=== PATIENT | female | born 2000 | race Caucasian/White ===

== ENCOUNTER 2019-05-07 21:48 | Emergency (ER) | payer BC ==
--- NOTE | 2019-05-07 22:06 | ERPHSYRPT ---
- History of Present Illness Time Seen by Provider: 05/07/19 22:06 Source: patient, family Exam Limitations: no limitations Patient Subjective Stated Complaint: pt states she has a tonsil stone and feels like its stuck in the back of her throat. states she feels like it has moved farther down today and is gagging her Triage Nursing Assessment: pt alert and oriented, answers questions approp. pt ambulatory iwht steady gait noted. respiraitons nonlabored with lungs cta. pt tearful at times. skin pink warm and dry. Physician History: 19 y/o white female with known h/o tonsil stones. 3 days ago pt noticed a fb sensation lower in her throat. pt has tried making herself vomit with her fingers, gargling with mouthwash and drinking fluids. pt is breathing normally, eating normally, drinking normally. pt states "i'm freaking out" "it gags me". no sig pain. pt has an appt with ENT next week. Timing/Duration: gradual onset (over 3 days), intermittent Severity: mild ENT Location: throat Prearrival Treatment: over the counter meds (see hx) Associated Symptoms: No sore throat, No difficulty swallowing, No voice change Allergies/Adverse Reactions: No Known Drug Allergies Allergy (Verified 05/07/19 22:02) Home Medications: Famotidine 20 mg [Pepcid 20 MG] 20 mg PO BID 05/07/19 [History] Hx Tetanus, Diphtheria Vaccination/Date Given: Yes Hx Influenza Vaccination/Date Given: No Hx Pneumococcal Vaccination/Date Given: No Immunizations Up to Date: Yes - Review of Systems Constitutional: No Symptoms Eyes: No Symptoms Ears, Nose, & Throat: No Symptoms, Other (fb sensation when she swallows), No Painful Swallowing Respiratory: No Symptoms Cardiac: No Symptoms Abdominal/Gastrointestinal: No Symptoms Genitourinary Symptoms: No Symptoms Musculoskeletal: No Symptoms Skin: No Symptoms Neurological: No Symptoms Psychological: Anxiety Endocrine: No Symptoms Hematologic/Lymphatic: No Symptoms Immunological/Allergic: No Symptoms All Other Systems: Reviewed and Negative - Past Medical History Pertinent Past Medical History: Yes History: No Pertinent History Psycho-Social History: No Pertinent History Female Reproductive Disorders: No Pertinent History Other Medical History: tonsil stones, pt states she has been having liver priblems the last few motnhs - Past Surgical History Past Surgical History: Yes Neuro Surgical History: No Pertinent History Cardiac: No Pertinent History Respiratory: No Pertinent History Gastrointestinal: No Pertinent History Genitourinary: No Pertinent History Musculoskeletal: No Pertinent History Female Surgical History: No Pertinent History Other Surgical History: ganglion cyst removed rt wrist - Social History Smoking Status: Never smoker Exposure to second hand smoke: No Drug Use: marijuana Patient Lives Alone: No - Female History Hx Last Menstrual Period: last week Hx Now: No - Nursing Vital Signs Nursing Vital Signs: Initial Vital Signs Temperature 98.8 F 05/07/19 21:55 Pulse Rate 93 H 05/07/19 21:55 Respiratory Rate 18 05/07/19 21:55 Blood Pressure 132/98 05/07/19 21:55 O2 Sat by Pulse Oximetry 99 05/07/19 21:55 Pain Scale Pain Intensity 0 - Physical Exam General Appearance: no apparent distress, alert, anxiety Eye Exam: bilateral eye: normal inspection, PERRL, EOMI Nasal Exam: normal inspection Throat Exam: normal, pharynx normal, moist mucus membranes, No dental tenderness , No excessive drooling, No pharynx swelling, No pharynx tenderness, No tongue swollen, No tonsillar exudate, No tonsillar swelling, No uvula swelling, No voice changes Neck Exam: normal inspection (no stridor), non-tender, supple, full range of motion, trachea midline Cardiovascular/Respiratory Exam: chest non-tender, normal breath sounds, regular rate/rhythm, heart sounds normal, no respiratory distress, No wheezing Abdominal Exam: non-tender Neurologic Exam: alert, oriented x 3, cooperative, 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 may add chloraseptic solution gargle. follow up with ENT for further management. return to ED if pain or unable to breathe, or unable to swallow your secretions.
[2019-05-07 23:17] VITALS: BP 112/72; PULSE 95; O2SAT 100
== END 2019-05-07 23:16 | disposition home or self-care (01) ==
LOC: ED 21:48
DX: F41.9 Anxiety disorder, unspecified (principal); R09.89 Other specified symptoms and signs involving the circulatory and respiratory systems
CPT/HCPCS: 99283

== ENCOUNTER 2021-06-22 03:35 | Observation (INO) | payer OTHER ==
[2021-06-22 04:06] VITALS: O2SAT 97
[2021-06-22 04:10] LABS: Amourphous Crystal FEW /HPF (NEGATIVE); Appearance SLIGHTLY CLOUDY (CLEAR); Bacteria RARE /HPF (NEGATIVE); Bilirubin NEGATIVE (NEGATIVE); Blood MODERATE Ery/ul (0-5); Epithelial Cells RARE /HPF (FEW); Glucose NEGATIVE (NEGATIVE); Ketones NEGATIVE (NEGATIVE); Leukocyte Esterase TRACE (NEGATIVE); Mucus SLIGHT /HPF (NEGATIVE); Nitrite NEGATIVE (NEGATIVE); Protein,Urine Dip 30 (Negative); Specific Gravity 1.013 (1.005-1.025); Urobilinogen NEGATIVE mg/dL (0-1)
[2021-06-22 04:12] LABS: RBC >101 /HPF (0-2)
[2021-06-22 04:13] LABS: Amphetamine,Urine NEGATIVE (NEGATIVE); Barbiturate,Urine POSITIVE (NEGATIVE); Benzodiazepine,Urine NEGATIVE (NEGATIVE); Cocaine,Urine NEGATIVE (NEGATIVE); Methadone,Urine NEGATIVE (NEGATIVE); Opiate,Urine NEGATIVE (NEGATIVE); PCP,Urine NEGATIVE (NEGATIVE); THC,Urine NEGATIVE (NEGATIVE)
[2021-06-22] MEDS ORDERED: MORPHINE SULFATE 4 MG INJ IV PRN (04:39)
[2021-06-22] MEDS ORDERED: Zofran 4 MG/2 ML VIAL IV PRN (04:40)
[2021-06-22] MEDS ORDERED: Lactated Ringers 1,000 ML IV SCH (05:00)
[2021-06-22 05:48] LABS: Absolute Neutrophil Ct (ANC) 4.38 (1.4-6.9); BASOPHIL % 0.4 % (0.0-0.4); Basophil (Absolute #) 0.03 (0-0.4); Eosinophil % 0.6 % (0.00-5.0); Eosinophil (Absolute #) 0.05 (0-0.5); Hematocrit 34.5 % (35-47); Hemoglobin 11.5 gm/dl (12.0-16.0); Lymphocyte (Absolute #) 3.32 (1.0-4.6); Lymphocytes % 40.2 % (24.0-44.0); Mean Cell Volume 89.1 fl (78-100); Mean Corpuscular Hemoglobin 29.7 pg (26-32); Mean Corpuscular Hgb Concent. 33.3 g/dl (32-36); Mean Platelet Volume 10.3 fl (7.5-11.0); Monocyte (Absolute #) 0.47 (0.0-1.3); Monocytes % 5.7 % (0.0-12.0); Neutrophil % 53.1 % (36.0-66.0); Platelet Count 228 K/mm3 (150-450); Red Blood Count 3.87 M/mm3 (4.1-5.4); Red Cell Distribution Width 12.6 % (11.5-14.0); White Blood Count 8.3 K/mm3 (4.0-10.5)
[2021-06-22 05:53] LABS: ALBUMIN 3.9 g/dL (3.5-5.0); ALKALINE PHOSPHATASE 136 U/L (38-126); ANION GAP 12.7 MEQ/L (5-15); BLOOD UREA NITROGEN 10 mg/dL (7-17); CHLORIDE 103 mmol/L (98-107); Calcium 9.3 mg/dL (8.4-10.2); Carbon Dioxide 22 mmol/L (22-30); Creatinine 1 0.59 mg/dL (0.52-1.04); EST GLOMERULAR FILTRATION RATE > 60.0 ML/MIN; Glucose 86 mg/dL (74-106); Potassium 3.7 mmol/L (3.5-5.1); SGOT/AST 24 U/L (14-36); SGPT/ALT 14 U/L (0-35); SODIUM 134 mmol/L (137-145); Total Protein 7.1 g/dL (6.3-8.2)
[2021-06-22] MEDS ORDERED: MORPHINE SULFATE 2 MG INJ ONE (06:08)
[2021-06-22] MEDS ORDERED: MORPHINE SULFATE 2 MG INJ IV ONE (06:09)
[2021-06-22] MEDS ORDERED: TORAdol 30 mg Injection IV ONE (07:09)
[2021-06-22] MEDS ORDERED: TORAdol 30 mg Injection ONE (07:09)
--- NOTE | 2021-06-22 08:57 | PCM.SSS ---
History of Present Illness - Chief Complaint Chief Complaint: OB CHECK FOR LEFT SIDED PAIN History of Present Illness: is a 21 year old female at 32 1/7 EGA who is following with Dr Cox for OB care, she came to labor and delivery early this morning after a sudden onset of sharp and stabbing pain in the left flank, she has also experienced urinary frequency, she has no fever, no vomiting or dysuria. she has a history of mild pre-eclampsia and is planned to be delivered at 37 wks per the patient report. - Review of Systems Constitutional: No Fever, No Chills Respiratory: No Cough, No Short Of Breath Cardiac: No Chest Pain, No Edema, No Syncope Abdominal/Gastrointestinal: No Abdominal Pain, No Nausea, No Vomiting, No Diarrhea Genitourinary Symptoms: Frequency Musculoskeletal: Back Pain Skin: No Rash Neurological: No Dizziness, No Focal Weakness, No Sensory Changes All Other Systems: Reviewed and Negative Medications & Allergies Home Medications: Home Medication List Butalb/Acetaminophen/Caffeine [Oipkes-Oxaekrxk-Uwdh 50-325-40] 1 - 2 tab PO Q6H PRN 06/22/21 [History Confirmed 06/22/21] Vits W-Ca,Fe,FA(<1Mg) [] 1 tab PO DAILY 06/22/21 [History Confirmed 06/22/21] Allergies/Adverse Reactions: Allergies Allergy/AdvReac Type Severity Reaction Status Date / Time topiramate [From Trokendi XR] AdvReac Mild Nausea Verified 06/22/21 03:55 - Past Medical History Past Medical History: Yes History: No Pertinent History Pyscho-Social History: No Pertinent History Reproductive Disorders: No Pertinent History Comment: tonsil stones, pt states she has been having liver priblems the last few motnhs - Female History Are you now?: Yes Expected Date of Delivery: 08/16/21 - Past Surgical History Past Surgical History: Yes Neuro Surgical History: No Pertinent History Cardiac History: No Pertinent History Respiratory Surgery: No Pertinent History GI Surgical History: No Pertinent History Genitourinary Surgical Hx: No Pertinent History Musculskeletal Surgical Hx: No Pertinent History Female Surgical History: No Pertinent History Other Surgical History: ganglion cyst removed rt wrist - Social History Smoking Status: Never smoker Exposure to second hand smoke: No Alcohol: None Drug Use: marijuana - Physical Exam Vital Signs: Vital Signs - 24 hr Temp Pulse Resp BP BP Pulse Ox 06/22/21 04:00 98.4 F 80 20 131/71 97 06/22/21 03:35 98.4 F 80 20 131/71 97 General Appearance: no apparent distress, alert Neurologic Exam: alert, oriented x 3 Respiratory Exam: normal breath sounds, lungs clear, No respiratory distress Cardiovascular Exam: regular rate/rhythm, normal heart sounds, normal peripheral pulses Gastrointestinal/Abdomen Exam: soft, normal bowel sounds, No tenderness, No mass Back Exam: CVA tenderness (mild left cva tenderness) Skin Exam: normal color, warm, dry, No rash Results - Labs Lab/Micro Results: Lab Results-Last 24 Hours 06/22/21 06/22/21 06/22/21 Range/Units 03:51 03:51 05:38 WBC 8.3 (4.0-10.5) K/mm3 RBC 3.87 L (4.1-5.4) M/mm3 Hgb 11.5 L (12.0-16.0) gm/dl Hct 34.5 L (35-47) % MCV 89.1 (78-100) fl MCH 29.7 (26-32) pg MCHC 33.3 (32-36) g/dl RDW 12.6 (11.5-14.0) % Plt Count 228 (150-450) K/mm3 MPV 10.3 (7.5-11.0) fl Gran % 53.1 (36.0-66.0) % Eos # (Auto) 0.05 (0-0.5) Absolute Lymphs (auto) 3.32 (1.0-4.6) Absolute Monos (auto) 0.47 (0.0-1.3) Lymphocytes % 40.2 (24.0-44.0) % Monocytes % 5.7 (0.0-12.0) % Eosinophils % 0.6 (0.00-5.0) % Basophils % 0.4 (0.0-0.4) % Absolute Granulocytes 4.38 (1.4-6.9) Basophils # 0.03 (0-0.4) Sodium (137-145) mmol/L Potassium (3.5-5.1) mmol/L Chloride (98-107) mmol/L Carbon Dioxide (22-30) mmol/L Anion Gap (5-15) MEQ/L BUN (7-17) mg/dL Creatinine (0.52-1.04) mg/dL Estimated GFR ML/MIN Glucose (74-106) mg/dL Calcium (8.4-10.2) mg/dL Total Bilirubin (0.2-1.3) mg/dL AST (14-36) U/L ALT (0-35) U/L Alkaline Phosphatase (38-126) U/L Serum Total Protein (6.3-8.2) g/dL Albumin (3.5-5.0) g/dL Urine Color YELLOW (YELLOW) Urine Appearance SLIGHTLY CLOUDY (CLEAR) Urine pH 6.0 (5-6) Ur Specific [place] 1.013 (1.005-1.025) Urine Protein 30 (Negative) Urine Ketones NEGATIVE (NEGATIVE) Urine Blood MODERATE (0-5) Cm/ul Urine Nitrite NEGATIVE (NEGATIVE) Urine Bilirubin NEGATIVE (NEGATIVE) Urine Urobilinogen NEGATIVE (0-1) mg/dL Ur Leukocyte Esterase TRACE (NEGATIVE) Urine WBC (Auto) 16-25 (0-5) /HPF Urine RBC (Auto) >101 (0-2) /HPF U Epithel Cells (Auto) RARE (FEW) /HPF Urine Bacteria (Auto) RARE (NEGATIVE) /HPF Amorphous Crystals FEW (NEGATIVE) /HPF Urine Mucus (Auto) SLIGHT (NEGATIVE) /HPF Urine Culture Reflexed YES (NO) Urine Glucose NEGATIVE (NEGATIVE) mg/dL Urine Opiates Level NEGATIVE (NEGATIVE) Ur Methadone NEGATIVE (NEGATIVE) Urine Barbiturates POSITIVE (NEGATIVE) Ur Phencyclidine (PCP) NEGATIVE (NEGATIVE) Urine Amphetamine NEGATIVE (NEGATIVE) U Benzodiazepine Level NEGATIVE (NEGATIVE) Urine Cocaine NEGATIVE (NEGATIVE) Urine Marijuana (THC) NEGATIVE (NEGATIVE) 06/22/21 Range/Units 05:38 WBC (4.0-10.5) K/mm3 RBC (4.1-5.4) M/mm3 Hgb (12.0-16.0) gm/dl Hct (35-47) % MCV (78-100) fl MCH (26-32) pg MCHC (32-36) g/dl RDW (11.5-14.0) % Plt Count (150-450) K/mm3 MPV (7.5-11.0) fl Gran % (36.0-66.0) % Eos # (Auto) (0-0.5) Absolute Lymphs (auto) (1.0-4.6) Absolute Monos (auto) (0.0-1.3) Lymphocytes % (24.0-44.0) % Monocytes % (0.0-12.0) % Eosinophils % (0.00-5.0) % Basophils % (0.0-0.4) % Absolute Granulocytes (1.4-6.9) Basophils # (0-0.4) Sodium 134 L (137-145) mmol/L Potassium 3.7 (3.5-5.1) mmol/L Chloride 103 (98-107) mmol/L Carbon Dioxide 22 (22-30) mmol/L Anion Gap 12.7 (5-15) MEQ/L BUN 10 (7-17) mg/dL Creatinine 0.59 (0.52-1.04) mg/dL Estimated GFR > 60.0 ML/MIN Glucose 86 (74-106) mg/dL Calcium 9.3 (8.4-10.2) mg/dL Total Bilirubin 0.30 (0.2-1.3) mg/dL AST 24 (14-36) U/L ALT 14 (0-35) U/L Alkaline Phosphatase 136 H (38-126) U/L Serum Total Protein 7.1 (6.3-8.2) g/dL Albumin 3.9 (3.5-5.0) g/dL Urine Color (YELLOW) Urine Appearance (CLEAR) Urine pH (5-6) Ur Specific [place] (1.005-1.025) Urine Protein (Negative) Urine Ketones (NEGATIVE) Urine Blood (0-5) Cm/ul Urine Nitrite (NEGATIVE) Urine Bilirubin (NEGATIVE) Urine Urobilinogen (0-1) mg/dL Ur Leukocyte Esterase (NEGATIVE) Urine WBC (Auto) (0-5) /HPF Urine RBC (Auto) (0-2) /HPF U Epithel Cells (Auto) (FEW) /HPF Urine Bacteria (Auto) (NEGATIVE) /HPF Amorphous Crystals (NEGATIVE) /HPF Urine Mucus (Auto) (NEGATIVE) /HPF Urine Culture Reflexed (NO) Urine Glucose (NEGATIVE) mg/dL Urine Opiates Level (NEGATIVE) Ur Methadone (NEGATIVE) Urine Barbiturates (NEGATIVE) Ur Phencyclidine (PCP) (NEGATIVE) Urine Amphetamine (NEGATIVE) U Benzodiazepine Level (NEGATIVE) Urine Cocaine (NEGATIVE) Urine Marijuana (THC) (NEGATIVE) - Radiology Impressions Radiology Exams & Impressions: Radiology Procedures Category Date Time Status KIDNEY [US] Urgent Exams 06/22/21 07:30 Ordered Assessment/Plan (1) Renal colic Current Visit: Yes Status: Acute Assessment & Plan: patient received ketorolac 15mg x 1 with complete resolution of her pain, did not respond well to morphine. labs reassuring and patient normotensive. category 1 heart tones. awaiting renal ultrasound results, if no significant obstruction will observe and possibly discharge later today. Code(s): N23 - UNSPECIFIED RENAL COLIC (2) Current Visit: Yes Status: Acute Code(s): Z34.90 - ENCNTR FOR SUPRVSN OF NORMAL , UNSP, UNSP TRIMESTER Hospital Summary - Vitals & Intake/Output Vital Signs: Vital Signs Temperature 98.4 F 06/22/21 04:00 Pulse Rate 80 06/22/21 04:00 Respiratory Rate 20 06/22/21 04:00 Blood Pressure 131/71 06/22/21 04:00 O2 Sat by Pulse Oximetry 97 06/22/21 04:00 Intake & Output: Intake & Output 06/19/21 06/20/21 06/21/21 06/22/21 11:59 11:59 11:59 11:59 Weight 69.4 kg - Lab Result Diagrams: 06/22/21 05:38 06/22/21 05:38 Lab Results-Last 24 Hrs: Lab Results-Last 24 Hours 06/22/21 06/22/21 06/22/21 Range/Units 03:51 03:51 05:38 WBC 8.3 (4.0-10.5) K/mm3 RBC 3.87 L (4.1-5.4) M/mm3 Hgb 11.5 L (12.0-16.0) gm/dl Hct 34.5 L (35-47) % MCV 89.1 (78-100) fl MCH 29.7 (26-32) pg MCHC 33.3 (32-36) g/dl RDW 12.6 (11.5-14.0) % Plt Count 228 (150-450) K/mm3 MPV 10.3 (7.5-11.0) fl Gran % 53.1 (36.0-66.0) % Eos # (Auto) 0.05 (0-0.5) Absolute Lymphs (auto) 3.32 (1.0-4.6) Absolute Monos (auto) 0.47 (0.0-1.3) Lymphocytes % 40.2 (24.0-44.0) % Monocytes % 5.7 (0.0-12.0) % Eosinophils % 0.6 (0.00-5.0) % Basophils % 0.4 (0.0-0.4) % Absolute Granulocytes 4.38 (1.4-6.9) Basophils # 0.03 (0-0.4) Sodium (137-145) mmol/L Potassium (3.5-5.1) mmol/L Chloride (98-107) mmol/L Carbon Dioxide (22-30) mmol/L Anion Gap (5-15) MEQ/L BUN (7-17) mg/dL Creatinine (0.52-1.04) mg/dL Estimated GFR ML/MIN Glucose (74-106) mg/dL Calcium (8.4-10.2) mg/dL Total Bilirubin (0.2-1.3) mg/dL AST (14-36) U/L ALT (0-35) U/L Alkaline Phosphatase (38-126) U/L Serum Total Protein (6.3-8.2) g/dL Albumin (3.5-5.0) g/dL Urine Color YELLOW (YELLOW) Urine Appearance SLIGHTLY CLOUDY (CLEAR) Urine pH 6.0 (5-6) Ur Specific [place] 1.013 (1.005-1.025) Urine Protein 30 (Negative) Urine Ketones NEGATIVE (NEGATIVE) Urine Blood MODERATE (0-5) Cm/ul Urine Nitrite NEGATIVE (NEGATIVE) Urine Bilirubin NEGATIVE (NEGATIVE) Urine Urobilinogen NEGATIVE (0-1) mg/dL Ur Leukocyte Esterase TRACE (NEGATIVE) Urine WBC (Auto) 16-25 (0-5) /HPF Urine RBC (Auto) >101 (0-2) /HPF U Epithel Cells (Auto) RARE (FEW) /HPF Urine Bacteria (Auto) RARE (NEGATIVE) /HPF Amorphous Crystals FEW (NEGATIVE) /HPF Urine Mucus (Auto) SLIGHT (NEGATIVE) /HPF Urine Culture Reflexed YES (NO) Urine Glucose NEGATIVE (NEGATIVE) mg/dL Urine Opiates Level NEGATIVE (NEGATIVE) Ur Methadone NEGATIVE (NEGATIVE) Urine Barbiturates POSITIVE (NEGATIVE) Ur Phencyclidine (PCP) NEGATIVE (NEGATIVE) Urine Amphetamine NEGATIVE (NEGATIVE) U Benzodiazepine Level NEGATIVE (NEGATIVE) Urine Cocaine NEGATIVE (NEGATIVE) Urine Marijuana (THC) NEGATIVE (NEGATIVE) 06/22/21 Range/Units 05:38 WBC (4.0-10.5) K/mm3 RBC (4.1-5.4) M/mm3 Hgb (12.0-16.0) gm/dl Hct (35-47) % MCV (78-100) fl MCH (26-32) pg MCHC (32-36) g/dl RDW (11.5-14.0) % Plt Count (150-450) K/mm3 MPV (7.5-11.0) fl Gran % (36.0-66.0) % Eos # (Auto) (0-0.5) Absolute Lymphs (auto) (1.0-4.6) Absolute Monos (auto) (0.0-1.3) Lymphocytes % (24.0-44.0) % Monocytes % (0.0-12.0) % Eosinophils % (0.00-5.0) % Basophils % (0.0-0.4) % Absolute Granulocytes (1.4-6.9) Basophils # (0-0.4) Sodium 134 L (137-145) mmol/L Potassium 3.7 (3.5-5.1) mmol/L Chloride 103 (98-107) mmol/L Carbon Dioxide 22 (22-30) mmol/L Anion Gap 12.7 (5-15) MEQ/L BUN 10 (7-17) mg/dL Creatinine 0.59 (0.52-1.04) mg/dL Estimated GFR > 60.0 ML/MIN Glucose 86 (74-106) mg/dL Calcium 9.3 (8.4-10.2) mg/dL Total Bilirubin 0.30 (0.2-1.3) mg/dL AST 24 (14-36) U/L ALT 14 (0-35) U/L Alkaline Phosphatase 136 H (38-126) U/L Serum Total Protein 7.1 (6.3-8.2) g/dL Albumin 3.9 (3.5-5.0) g/dL Urine Color (YELLOW) Urine Appearance (CLEAR) Urine pH (5-6) Ur Specific [place] (1.005-1.025) Urine Protein (Negative) Urine Ketones (NEGATIVE) Urine Blood (0-5) Cm/ul Urine Nitrite (NEGATIVE) Urine Bilirubin (NEGATIVE) Urine Urobilinogen (0-1) mg/dL Ur Leukocyte Esterase (NEGATIVE) Urine WBC (Auto) (0-5) /HPF Urine RBC (Auto) (0-2) /HPF U Epithel Cells (Auto) (FEW) /HPF Urine Bacteria (Auto) (NEGATIVE) /HPF Amorphous Crystals (NEGATIVE) /HPF Urine Mucus (Auto) (NEGATIVE) /HPF Urine Culture Reflexed (NO) Urine Glucose (NEGATIVE) mg/dL Urine Opiates Level (NEGATIVE) Ur Methadone (NEGATIVE) Urine Barbiturates (NEGATIVE) Ur Phencyclidine (PCP) (NEGATIVE) Urine Amphetamine (NEGATIVE) U Benzodiazepine Level (NEGATIVE) Urine Cocaine (NEGATIVE) Urine Marijuana (THC) (NEGATIVE) - Radiology Exams Ordered Rad Exams-Entire Visit: Radiology Procedures Category Date Time Status KIDNEY [US] Urgent Exams 06/22/21 07:30 Ordered - Discharge Disposition: Home, Self-Care Condition: Stable Prescriptions: Continue Butalb/Acetaminophen/Caffeine [Vzgqol-Ucysdmfr-Ucck 50-325-40] 1 - 2 tab PO Q6H PRN PRN Reason: Headache Vits W-Ca,Fe,FA(<1Mg) [] 1 tab PO DAILY Follow up with: SKINNY COX MD [NON-STAFF PHY W/O PRIVILEGES] -
--- NOTE | 2021-06-22 09:23 | XRAY ---
Indication: Left-sided pain. Stone. 32 weeks . Two-dimensional renal sonogram performed. Comparison: March 09, 2019. Again both kidneys normal in reniform shape with normal color perfusion. Right kidney measures 13.1 x 5.9 x 5.4 cm and the left measures 13.3 x 6.1 x 5.8 cm. Left kidney demonstrates at least 3 new calculi with mild hydronephrosis. Largest measures 1.1 cm in the lower calyx. No perinephric fluid. Images of the distended urinary bladder grossly unremarkable. Impression: New left renal calculi with mild hydronephrosis. Negative right renal sonogram.
[2021-06-22 15:47] VITALS: BP 139/63; PULSE 81
== END 2021-06-22 14:50 | disposition home or self-care (01) ==
LOC: OB 03:35 → UNDOADMOB 03:35
PROVIDERS: ADMIT Family Medicine; ATTEND Family Medicine
DX: O26.893 Other specified pregnancy related conditions, third trimester (principal); Z3A.32 32 weeks gestation of pregnancy; N23 Unspecified renal colic
CPT/HCPCS: 36415; 76770; 80053; 80307; 81001; 85025; 87086; G0378; J1885; J2270; J2405

== ENCOUNTER 2022-04-11 21:51 | Emergency (ER) | payer OTHER ==
[2022-04-11 22:12] VITALS: O2SAT 96
--- NOTE | 2022-04-11 22:43 | ERPHSYRPT ---
- History of Present Illness Source: patient Exam Limitations: no limitations Patient Subjective Stated Complaint: pt states "I have had a headache since friday and it won't stop." Triage Nursing Assessment: pt ambulated into the er; pt is holding head and tearful; pt is axo x4; c/o headache; pt states 7/10 pain to front and back of head; pt states no recent trauma or injury to head; c/o N/V; pt denies LOC; pupils 4 mm and PERRL; strong massiel foot setter and massiel pushes; vitals wnl Physician History: 22 yo wf w frontal MONTEIRO x3days. Pain described as severe/pressure and is accompanied by N/V. She denies trauma and has never had a MONTEIRO like this. Light and head movement make the pain worse. Focal weakness/fever/cough/ denied. Timing/Duration: other (3 days) Quality: pressure Head Pain Location: frontal Severity of Pain-Max: severe Severity of Pain-Current: severe Recent Head Trauma: no recent headache/trauma Modifying Factors: Improves With: exposure to light, movement Associated Symptoms: nausea/vomiting, sensitive to light, No confusion, No dizziness, No fatigue, No facial pain, No fever/chills, No flushing, No light- headedness, No loss of consciousness, No nasal congestion, No nasal drainage, No neck pain, No numbness in legs/feet, No rash, No sweating, No scotoma, No seizures, No sinus infection, No speech problems, No stiff neck, No trouble walking, No vision changes, No visual disturbance, No weakness Allergies/Adverse Reactions: topiramate [From Are You a [id number] Found! XR] Adverse Reaction (Mild, Verified 04/11/22 22:00) Nausea HEADACHES MIGRANES AND NAUSEA Home Medications: norethindrone ac-eth estradioL [Microgestin 21 1-20 Tablet] 1 each PO 04/11/22 [History] Hx Tetanus, Diphtheria Vaccination/Date Given: Yes Hx Influenza Vaccination/Date Given: Yes Hx Pneumococcal Vaccination/Date Given: No Travel Risk - International Travel Have you traveled outside of the country in past 3 weeks: No - Coronavirus Screening Are you exhibiting any of the following symptoms?: Yes Symptoms: Headaches/Body Aches/Fatigue Close contact with a COVID-19 positive Pt in past 14-21 Days: No - Vaccine Status Have you recieved a Covid-19 vaccination: No - Review of Systems Constitutional: No Symptoms Eyes: No Symptoms Ears, Nose, & Throat: No Symptoms Respiratory: No Symptoms Cardiac: No Symptoms Abdominal/Gastrointestinal: No Symptoms, Nausea, Vomiting Genitourinary Symptoms: No Symptoms Musculoskeletal: No Symptoms Skin: No Symptoms Neurological: No Symptoms, Headache Psychological: No Symptoms Endocrine: No Symptoms Hematologic/Lymphatic: No Symptoms Immunological/Allergic: No Symptoms - Past Medical History Pertinent Past Medical History: Yes Neurological History: No Pertinent History ENT History: No Pertinent History Cardiac History: No Pertinent History Respiratory History: No Pertinent History Endocrine Medical History: No Pertinent History Musculoskeletal History: No Pertinent History GI Medical History: No Pertinent History History: No Pertinent History Psycho-Social History: No Pertinent History Female Reproductive Disorders: No Pertinent History Other Medical History: tonsil stones, pt states she has been having liver priblems the last few motnhs - Past Surgical History Past Surgical History: Yes Neuro Surgical History: No Pertinent History Cardiac: No Pertinent History Respiratory: No Pertinent History Gastrointestinal: Cholecystectomy Genitourinary: No Pertinent History Musculoskeletal: No Pertinent History Female Surgical History: No Pertinent History Other Surgical History: ganglion cyst removed rt wrist, kidney stone removed - Social History Smoking Status: Former smoker Exposure to second hand smoke: No Drug Use: marijuana Patient Lives Alone: No Significant Family History: no pertinent family hx - Female History Hx Now: No - Nursing Vital Signs Nursing Vital Signs: Initial Vital Signs Temperature 97.8 F 04/11/22 22:01 Pulse Rate 83 04/11/22 22:01 Respiratory Rate 22 04/11/22 22:01 Blood Pressure 126/66 04/11/22 22:01 O2 Sat by Pulse Oximetry 96 04/11/22 22:01 Pain Scale Pain Intensity 6 WNL - Physical Exam General Appearance: no apparent distress (In pain) Eye Exam: PERRL/EOMI, eyes nml inspection Ears, Nose, Throat Exam: normal ENT inspection, TMs normal, pharynx normal, moist mucous membranes Neck Exam: normal inspection, non-tender, supple, full range of motion, No meningismus, No mass, No Brudzinski, No Kernig's, No carotid bruit Respiratory Exam: normal breath sounds, lungs clear, airway intact Cardiovascular Exam: regular rate/rhythm, normal heart sounds, normal peripheral pulses, capillary refill <2 sec, No murmur Gastrointestinal/Abdominal Exam: soft, normal bowel sounds Back Exam: normal inspection, normal range of motion, No CVA tenderness Extremity Exam: normal inspection, normal range of motion Mental Status Exam: alert, oriented x 3, 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 Exam: normal hearing, normal speech, PERRL, tongue midline, No abnormal eye position, No abnormal gag reflex, No abnormal pupil position, No abnormal speech, No facial asymmetry, No facial droop, No facial paresthesias, No facial weakness, No gaze palsy, No hearing deficit (R), No hearing deficit (L), No tongue deviation to R, No tongue deviation to L Coordination/Gait Exam: normal finger to nose, normal cerebellar function, negative Romberg's sign Motor/Sensory Exam: no motor deficit, no sensory deficit, no pronator drift, negative Babinski's sign DTR Exam: bicep (R): 2+, bicep (L): 2+ Skin Exam: normal color, warm, dry, No rash Lymphatic Exam: No adenopathy SpO2 Interpretation: normal SpO2: 96 O2 Delivery: Room Air - Course Nursing assessment & vital signs reviewed: Yes - CT Exams Head CT Interpretation: Tele-radiologist Report (Ct head neg) Ordered Tests: Medication Summary Discontinued Medications Generic Name Dose Route Start Last Admin Trade Name Familia PRN Reason Stop Dose Admin Ketorolac Tromethamine 30 mg 04/11/22 23:37 04/11/22 23:47 Ketorolac Tromethamine 30 Mg/Ml Inj IM 04/11/22 23:38 30 mg STAT ONE Administration Ketorolac Tromethamine Confirm 04/11/22 23:39 Ketorolac Tromethamine 30 Mg/Ml Inj Administered 04/11/22 23:40 Dose 30 mg .ROUTE .STK-MED ONE Prochlorperazine Edisylate 10 mg 04/11/22 23:37 04/11/22 23:40 Prochlorperazine Edisylate 10 Mg/2 Ml Vial IM 04/11/22 23:38 10 mg STAT ONE Administration Prochlorperazine Edisylate Confirm 04/11/22 23:39 Prochlorperazine Edisylate 10 Mg/2 Ml Vial Administered 04/11/22 23:40 Dose 10 mg .ROUTE .STK-MED ONE Lab/Rad Data: Laboratory Results 04/11/22 Range/Units 22:40 Influenza Type A Ag NEGATIVE (NEGATIVE) Influenza Type B Ag NEGATIVE (NEGATIVE) RSV (PCR) NEGATIVE (Negative) SARS-CoV-2 (PCR) NEGATIVE (NEGATIVE) - Progress Progress: improved Progress Note: 04/11/22 23:38 30mg IM Toradol/10mg IM Compazine 04/12/22 00:05 Pain improving after meds Counseled pt/family regarding: diagnosis, need for follow-up, rad results - Departure Departure Disposition: Home Clinical Impression: Migraine headache Condition: Stable Critical Care Time: No Referrals: MARCELO [facility]ENTUR[facility] [employer] [Primary Care Provider] - Follow up/PCP as directed Instructions: Headache, Adult (DC) Additional Instructions: Return to ER for increasing pain/Focal weakness/Temperature greater than 100.5
[2022-04-11 23:22] LABS: INFLUENZA A NEGATIVE (NEGATIVE); INFLUENZA B NEGATIVE (NEGATIVE); RESPIRATORY SYNCTIAL VIRUS NEGATIVE (Negative); SARS-CoV-2 Xpert Express NEGATIVE (NEGATIVE)
[2022-04-11] MEDS ORDERED: TORAdol 30 mg Injection IM ONE (23:37)
[2022-04-11] MEDS ORDERED: Compazine 10 MG/2 ML IM ONE (23:37)
[2022-04-11] MEDS ORDERED: Compazine 10 MG/2 ML ONE (23:39)
[2022-04-11] MEDS ORDERED: TORAdol 30 mg Injection ONE (23:39)
[2022-04-11 23:49] VITALS: BP 120/60; PULSE 88
--- NOTE | 2022-04-12 09:26 | XRAY ---
Indication: Migraine headache. Nausea and vomiting. Multiple contiguous axial images obtained through the head without contrast. Comparison: None Normal appearing brain parenchyma, ventricles, and bony calvarium. Mild mucosal thickening both sphenoid sinuses. Remaining visualized paranasal sinuses and mastoid air cells are clear. Impression: Mild sphenoid sinus disease. Remaining CT head without contrast exam is normal. Comment: Preliminary interpretation made by [facility]. No critical discrepancy.
== END 2022-04-12 00:17 | disposition home or self-care (01) ==
LOC: ED 21:51
DX: G43.909 Migraine, unspecified, not intractable, without status migrainosus (principal); R11.2 Nausea with vomiting, unspecified; H53.143 Visual discomfort, bilateral; Z28.310 Unvaccinated for COVID-19
CPT/HCPCS: 0241U; 70450; 96372; 99284; J1885